=== PATIENT | male | born 1965 | race Caucasian/White ===

== ENCOUNTER 2017-02-19 18:49 | Inpatient (IN) | payer OTHER ==
[~2017-02-19] VITALS: Ht 198.1 cm; Wt 128.3 kg
[2017-02-19 19:28] LABS: HEMATOCRIT 55.2 % (38.0-50.0); HEMOGLOBIN 17.6 G/DL (12.5-16.6); MCH 27.2 PG (29.0-34.0); MCHC 31.9 G/DL (30.0-36.0); MCV 85.2 FL (86-99); PLATELET COUNT 358 K/uL (156-360); RBC DIS.WIDTH-CV 13.8 % (11.8-14.6); RBC DIS.WIDTH-SD 42.3 % (39-53); RED BLOOD COUNT 6.48 M/uL (4.00-5.50); WHITE BLOOD COUNT 17.6 K/uL (4.1-10.2)
[2017-02-19 19:36] LABS: CHLORIDE 100 mEq/L (99-109); SODIUM 129 mEq/L (136-147)
[2017-02-19 19:42] LABS: GFR ESTIMATE (CALCULATED) 37 mL/min/ (58.99-99999)
[2017-02-19 19:43] LABS: UREA NITROGEN (BUN) 27 mg/dL (9-23)
[2017-02-19 20:13] LABS: VENOUS PCO2 29 mm Hg (41-51)
[2017-02-19 20:23] LABS: GLUCOSE 603 mg/dL (70-99); POTASSIUM 6.9 mEq/L (3.7-5.4)
[2017-02-19 21:33] LABS: Estimated Average Glucose 280 mg/dL (70-123); HEMOGLOBIN A1c (GLYCOHEMOGLOB) 11.4 % HGB (Below 5.7)
[2017-02-19 22:58] VITALS: BP 112/70
[2017-02-19 23:00] VITALS: BP 112/70
[2017-02-20] VITALS (22 sets, daily range): BP systolic 92–151; BP diastolic 52–88
[2017-02-20 00:27] LABS: CHLORIDE 104 mEq/L (99-109); SODIUM 131 mEq/L (136-147)
[2017-02-20 00:33] LABS: CREATININE 1.8 mg/dL (0.6-1.3); GFR ESTIMATE (CALCULATED) 42 mL/min/ (58.99-99999); PHOSPHORUS 4.2 mg/dL (2.5-4.9)
[2017-02-20 00:34] LABS: UREA NITROGEN (BUN) 31 mg/dL (9-23)
[2017-02-20 00:43] LABS: GLUCOSE 531 mg/dL (70-99); POTASSIUM 5.2 mEq/L (3.7-5.4)
[2017-02-20 01:19] LABS: APPEARANCE CLEAR ((CLEAR)); BILIRUBIN NEGATIVE; BLOOD SMALL; COLOR YELLOW ((YELLOW)); GLUCOSE (STRIP) >=500; KETONES 80; LEUKOCYTES NEGATIVE; NITRITE NEGATIVE; PROTEIN (STRIP) 30; UROBILINOGEN 0.2 MG/DL (0.2-1.0)
[2017-02-20 01:24] LABS: BACTERIA RARE /HPF; EPITHELIAL CELLS RARE /HPF; MUCUS TRACE /LPF; RED BLOOD CELLS 0-5 /HPF (0-5); UCUL ADDED? NO; WHITE BLOOD CELLS 0-5 /HPF (0-5)
[2017-02-20 04:38] LABS: CHLORIDE 108 mEq/L (99-109); POTASSIUM 4.9 mEq/L (3.7-5.4); SODIUM 133 mEq/L (136-147)
[2017-02-20 04:40] LABS: GLUCOSE 335 mg/dL (70-99)
[2017-02-20 04:44] LABS: CREATININE 1.4 mg/dL (0.6-1.3); GFR ESTIMATE (CALCULATED) 56 mL/min/ (58.99-99999); UREA NITROGEN (BUN) 33 mg/dL (9-23)
[2017-02-20 04:50] LABS: PHOSPHORUS 2.4 mg/dL (2.5-4.9)
[2017-02-20 08:46] LABS: CHLORIDE 108 MEQ/L (99-109); POTASSIUM 4.6 MEQ/L (3.7-5.4); SODIUM 135 MEQ/L (136-147)
[2017-02-20 08:52] LABS: GFR ESTIMATE (CALCULATED) > 59 mL/min/ (58.99-99999); GLUCOSE 225 mg/dL (70-99); PHOSPHORUS 2.3 mg/dL (2.5-4.9); UREA NITROGEN (BUN) 32 mg/dL (9-23)
[2017-02-20 08:55] LABS: CREATININE 0.9 MG/DL (0.6-1.3)
[2017-02-20 12:34] LABS: CHLORIDE 99 MEQ/L (99-109); CREATININE 0.8 MG/DL (0.6-1.3); GFR ESTIMATE (CALCULATED) > 59 mL/min/ (58.99-99999); GLUCOSE 182 mg/dL (70-99); PHOSPHORUS 1.7 mg/dL (2.5-4.9); SODIUM 124 MEQ/L (136-147); UREA NITROGEN (BUN) 30 mg/dL (9-23)
[2017-02-20 12:58] LABS: BASOPHIL (%) 0.2 % (0-1); EOSINOPHIL (%) 0 % (0-5); HEMATOCRIT 41.8 % (38.0-50.0); IMMATURE GRANULOCYTE (%) 0.6 % (0.0-0.7); LYMPHOCYTE (%) 13.2 % (15-42); LYMPHOCYTE COUNT 1.4 K/uL (1.0-2.8); MCHC 33.7 G/DL (30.0-36.0); MONOCYTE (%) 14.6 % (3-12); MONOCYTE COUNT 1.6 K/uL (0-0.8); NEUTROPHIL (%) 71.4 % (45-76); NEUTROPHIL COUNT 7.7 K/uL (1.8-6.4); RBC DIS.WIDTH-CV 13.6 % (11.8-14.6); RBC DIS.WIDTH-SD 39.1 % (39-53); WHITE BLOOD COUNT 10.8 K/uL (4.1-10.2)
[2017-02-20 12:59] LABS: HEMOGLOBIN 14.1 G/DL (12.5-16.6); MCV 79.9 FL (86-99); RED BLOOD COUNT 5.23 M/uL (4.00-5.50)
[2017-02-20 13:15] LABS: ALKALINE PHOSPHATASE 32 IU/L (3-129); ALT (GPT) 15 IU/L (3-49); AST (GOT) 11 IU/L (2-34); MAGNESIUM 1.5 mg/dl (1.3-2.7); TOTAL BILIRUBIN 0.3 MG/DL (0.0-1.0); TOTAL PROTEIN 5.3 G/DL (6.4-8.3)
[2017-02-20 13:22] LABS: PLAT.SUFFICIENCY ADEQUATE; PLATELET COUNT 247 K/uL (156-360)
[2017-02-20 14:15] LABS: HIGH-SENS C-REACTIVE PROTEIN 7.13 MG/DL (0.02-0.20)
[2017-02-20 14:46] LABS: THYROTROPIN (TSH) 0.41 MIU/L (0.4-5.5)
[2017-02-20 16:47] LABS: CHLORIDE 106 MEQ/L (99-109); SODIUM 130 MEQ/L (136-147)
[2017-02-20 16:48] LABS: POTASSIUM 3.6 MEQ/L (3.7-5.4)
[2017-02-20 16:52] LABS: CREATININE 0.7 MG/DL (0.6-1.3); GFR ESTIMATE (CALCULATED) > 59 mL/min/ (58.99-99999); GLUCOSE 181 mg/dL (70-99); PHOSPHORUS 1.3 mg/dL (2.5-4.9); UREA NITROGEN (BUN) 29 mg/dL (9-23)
[2017-02-20] MEDS ORDERED: CLONAZEPAM2 MG PO (16:54)
[2017-02-20] MEDS ORDERED: HUMALOG100 UNIT/1 SC (16:54)
[2017-02-20] MEDS ORDERED: VENLAFAXINE H37.5 M3 PO (16:55)
[2017-02-20] MEDS ORDERED: VIAGRA100 MG PO (16:55)
[2017-02-20] MEDS ORDERED: ATORVASTATIN CA40 MG PO (16:55)
[2017-02-20] MEDS ORDERED: FARXIGA5 MG PO (16:55)
[2017-02-20] MEDS ORDERED: TRULICITY1.5 MG/0.5 SC (16:55)
[2017-02-20] MEDS ORDERED: AMLODIPINE-BEN1 EACH PO (16:55)
[2017-02-20] MEDS ORDERED: VENLAFAXINE HC150 M1 PO (16:55)
[2017-02-20] MEDS ORDERED: PREVACID 24HR15 MG PO (16:56)
[2017-02-20] MEDS ORDERED: VALERIAN ROOT500 MG PO (16:56)
[2017-02-20] MEDS ORDERED: METFORMIN HCL500 M1 PO (16:56)
[2017-02-20] MEDS ORDERED: ST. JOHN'S WOR300 MG PO (16:56)
[2017-02-20 20:42] LABS: CHLORIDE 110 MEQ/L (99-109); POTASSIUM 3.2 MEQ/L (3.7-5.4); SODIUM 133 MEQ/L (136-147)
[2017-02-20 20:48] LABS: CREATININE 0.6 MG/DL (0.6-1.3); GFR ESTIMATE (CALCULATED) > 59 mL/min/ (58.99-99999); GLUCOSE 157 mg/dL (70-99); PHOSPHORUS 1.4 mg/dL (2.5-4.9); UREA NITROGEN (BUN) 23 mg/dL (9-23)
[2017-02-21] VITALS (24 sets, daily range): BP systolic 84–173; BP diastolic 64–98
[2017-02-21 05:53] LABS: HEMATOCRIT 38.9 % (38.0-50.0); HEMOGLOBIN 12.9 G/DL (12.5-16.6); MCH 26.4 PG (29.0-34.0); MCHC 33.2 G/DL (30.0-36.0); MCV 79.6 FL (86-99); PLATELET COUNT 187 K/uL (156-360); RBC DIS.WIDTH-CV 13.8 % (11.8-14.6); RBC DIS.WIDTH-SD 39.9 % (39-53); RED BLOOD COUNT 4.89 M/uL (4.00-5.50); WHITE BLOOD COUNT 10.7 K/uL (4.1-10.2)
[2017-02-21 06:33] LABS: ALBUMIN 2.6 G/DL (3.2-4.8); ALKALINE PHOSPHATASE 25 IU/L (3-129); ALT (GPT) 10 IU/L (3-49); AST (GOT) 9 IU/L (2-34); CHLORIDE 105 MEQ/L (99-109); CREATININE 0.7 MG/DL (0.6-1.3); GFR ESTIMATE (CALCULATED) > 59 mL/min/ (58.99-99999); POTASSIUM 3.8 MEQ/L (3.7-5.4); SODIUM 133 MEQ/L (136-147); TOTAL PROTEIN 4.6 G/DL (6.4-8.3); UREA NITROGEN (BUN) 16 mg/dL (9-23)
[2017-02-21 06:38] LABS: GLUCOSE 245 mg/dL (70-99); TOTAL BILIRUBIN 0.5 MG/DL (0.0-1.0)
[2017-02-21 07:35] LABS: MAGNESIUM 1.4 mg/dl (1.3-2.7); PHOSPHORUS 2.1 mg/dL (2.5-4.9)
[2017-02-21 11:17] LABS: METHEMOGLOBIN 1.5 % (0-1.5); PCO2 < 19 mm Hg (35-45); PO2 76 mm Hg (80-100)
[2017-02-21 11:18] LABS: SITE LR
[2017-02-21 11:19] LABS: COMMENTS - BLOOD GASES A+C+; TOTAL RESP RATE 36 resp/min; pH 7.22 (7.35-7.45)
[2017-02-22] VITALS (22 sets, daily range): BP systolic 103–154; BP diastolic 60–97
[2017-02-22 06:12] LABS: ALBUMIN 2.4 G/DL (3.2-4.8); ALKALINE PHOSPHATASE 23 IU/L (3-129); ALT (GPT) 8 IU/L (3-49); AMYLASE 12 IU/L (1-118); AST (GOT) < 7 IU/L (2-34); CHLORIDE 108 MEQ/L (99-109); CREATININE 0.9 MG/DL (0.6-1.3); GFR ESTIMATE (CALCULATED) > 59 mL/min/ (58.99-99999); GLUCOSE 254 mg/dL (70-99); POTASSIUM 3.2 MEQ/L (3.7-5.4); SODIUM 137 MEQ/L (136-147); TOTAL BILIRUBIN 0.5 MG/DL (0.0-1.0); TOTAL PROTEIN 4.6 G/DL (6.4-8.3); UREA NITROGEN (BUN) 14 mg/dL (9-23)
[2017-02-22 10:05] LABS: BASOPHIL (%) 0.2 % (0-1); EOSINOPHIL (%) 0 % (0-5); HEMATOCRIT 34.6 % (38.0-50.0); IMMATURE GRANULOCYTE (%) 1.7 % (0.0-0.7); LYMPHOCYTE (%) 12.8 % (15-42); LYMPHOCYTE COUNT 1.4 K/uL (1.0-2.8); MCH 27.1 PG (29.0-34.0); MCHC 34.7 G/DL (30.0-36.0); MCV 78.3 FL (86-99); MONOCYTE (%) 8.4 % (3-12); MONOCYTE COUNT 0.9 K/uL (0-0.8); NEUTROPHIL (%) 76.9 % (45-76); NEUTROPHIL COUNT 8.4 K/uL (1.8-6.4); PLATELET COUNT 191 K/uL (156-360); RBC DIS.WIDTH-CV 14.3 % (11.8-14.6); RBC DIS.WIDTH-SD 40.1 % (39-53); RED BLOOD COUNT 4.42 M/uL (4.00-5.50)
[2017-02-22 10:55] LABS: HIGH-SENS C-REACTIVE PROTEIN > 8.00 MG/DL (0.02-0.20)
[2017-02-22 17:05] LABS: ALBUMIN 2.6 G/DL (3.2-4.8); ALKALINE PHOSPHATASE 25 IU/L (3-129); ALT (GPT) 9 IU/L (3-49); AST (GOT) 8 IU/L (2-34); CHLORIDE 109 MEQ/L (99-109); CREATININE 0.8 MG/DL (0.6-1.3); GFR ESTIMATE (CALCULATED) > 59 mL/min/ (58.99-99999); GLUCOSE 244 mg/dL (70-99); MAGNESIUM 2.1 mg/dl (1.3-2.7); PHOSPHORUS 1.2 mg/dL (2.5-4.9); POTASSIUM 3.2 MEQ/L (3.7-5.4); SODIUM 140 MEQ/L (136-147); TOTAL BILIRUBIN 0.6 MG/DL (0.0-1.0); TOTAL PROTEIN 4.9 G/DL (6.4-8.3); UREA NITROGEN (BUN) 12 mg/dL (9-23)
[2017-02-22 17:06] LABS: TROP-I INTERPRETATION NEGATIVE; TROPONIN-I < 0.01 ng/mL (0.0-0.30)
[2017-02-22 23:30] LABS: ALBUMIN 2.4 G/DL (3.2-4.8); ALKALINE PHOSPHATASE 24 IU/L (3-129); ALT (GPT) 8 IU/L (3-49); AST (GOT) 7 IU/L (2-34); CHLORIDE 116 MEQ/L (99-109); CREATININE 0.7 MG/DL (0.6-1.3); GFR ESTIMATE (CALCULATED) > 59 mL/min/ (58.99-99999); GLUCOSE 200 mg/dL (70-99); POTASSIUM 2.9 MEQ/L (3.7-5.4); SODIUM 142 MEQ/L (136-147); TOTAL PROTEIN 4.7 G/DL (6.4-8.3); UREA NITROGEN (BUN) 12 mg/dL (9-23)
[2017-02-22 23:32] LABS: TOTAL BILIRUBIN 0.4 MG/DL (0.0-1.0)
[2017-02-23] VITALS (24 sets, daily range): BP systolic 114–173; BP diastolic 71–105
[2017-02-23 06:21] LABS: BASOPHIL (%) 0.2 % (0-1); EOSINOPHIL (%) 0 % (0-5); HEMOGLOBIN 11.6 G/DL (12.5-16.6); IMMATURE GRANULOCYTE (%) 0.7 % (0.0-0.7); LYMPHOCYTE (%) 8.1 % (15-42); LYMPHOCYTE COUNT 0.9 K/uL (1.0-2.8); MCH 26.5 PG (29.0-34.0); MCHC 34.1 G/DL (30.0-36.0); MCV 77.8 FL (86-99); MONOCYTE (%) 5.3 % (3-12); MONOCYTE COUNT 0.6 K/uL (0-0.8); NEUTROPHIL (%) 85.7 % (45-76); NEUTROPHIL COUNT 9.9 K/uL (1.8-6.4); PLATELET COUNT 218 K/uL (156-360); RBC DIS.WIDTH-CV 14.4 % (11.8-14.6); RBC DIS.WIDTH-SD 40.3 % (39-53); RED BLOOD COUNT 4.37 M/uL (4.00-5.50); WHITE BLOOD COUNT 11.5 K/uL (4.1-10.2)
[2017-02-23 06:53] LABS: ALBUMIN 2.3 G/DL (3.2-4.8); ALKALINE PHOSPHATASE 29 IU/L (3-129); ALT (GPT) 7 IU/L (3-49); AST (GOT) 8 IU/L (2-34); CHLORIDE 114 MEQ/L (99-109); CREATININE 0.7 MG/DL (0.6-1.3); GFR ESTIMATE (CALCULATED) > 59 mL/min/ (58.99-99999); GLUCOSE 147 mg/dL (70-99); MAGNESIUM 2.1 mg/dl (1.3-2.7); PHOSPHORUS 1.2 mg/dL (2.5-4.9); POTASSIUM 3.2 MEQ/L (3.7-5.4); SODIUM 143 MEQ/L (136-147); TOTAL PROTEIN 4.6 G/DL (6.4-8.3); UREA NITROGEN (BUN) 14 mg/dL (9-23)
[2017-02-23 07:04] LABS: TOTAL BILIRUBIN 0.3 MG/DL (0.0-1.0)
[2017-02-23 07:10] LABS: ERTH.SED.RATE 30 MM/HR (0-20)
[2017-02-23 10:49] LABS: ALBUMIN 2.4 G/DL (3.2-4.8); ALKALINE PHOSPHATASE 26 IU/L (3-129); ALT (GPT) 6 IU/L (3-49); AST (GOT) 7 IU/L (2-34); CHLORIDE 115 MEQ/L (99-109); CREATININE 0.6 MG/DL (0.6-1.3); GFR ESTIMATE (CALCULATED) > 59 mL/min/ (58.99-99999); GLUCOSE 160 mg/dL (70-99); MAGNESIUM 2.1 mg/dl (1.3-2.7); PHOSPHORUS 1.3 mg/dL (2.5-4.9); SODIUM 143 MEQ/L (136-147); TOTAL BILIRUBIN 0.3 MG/DL (0.0-1.0); TOTAL PROTEIN 4.6 G/DL (6.4-8.3); UREA NITROGEN (BUN) 15 mg/dL (9-23)
[2017-02-23 21:00] LABS: ALBUMIN 2.4 G/DL (3.2-4.8); CHLORIDE 117 MEQ/L (99-109); MAGNESIUM 2.1 mg/dl (1.3-2.7); POTASSIUM 2.9 MEQ/L (3.7-5.4); SODIUM 145 MEQ/L (136-147); TOTAL BILIRUBIN 0.3 MG/DL (0.0-1.0)
[2017-02-23 21:16] LABS: ALKALINE PHOSPHATASE 28 IU/L (3-129); ALT (GPT) 8 IU/L (3-49); AST (GOT) 8 IU/L (2-34); CREATININE 0.6 MG/DL (0.6-1.3); GFR ESTIMATE (CALCULATED) > 59 mL/min/ (58.99-99999); GLUCOSE 194 mg/dL (70-99); PHOSPHORUS 1.4 mg/dL (2.5-4.9); UREA NITROGEN (BUN) 18 mg/dL (9-23)
[2017-02-24] VITALS (23 sets, daily range): BP systolic 119–168; BP diastolic 66–110
[2017-02-24 04:49] LABS: BASOPHIL (%) 0.2 % (0-1); EOSINOPHIL (%) 0 % (0-5); HEMATOCRIT 30.8 % (38.0-50.0); HEMOGLOBIN 10.7 G/DL (12.5-16.6); IMMATURE GRANULOCYTE (%) 1.5 % (0.0-0.7); LYMPHOCYTE (%) 9.6 % (15-42); LYMPHOCYTE COUNT 1.2 K/uL (1.0-2.8); MCHC 34.7 G/DL (30.0-36.0); MCV 77.6 FL (86-99); MONOCYTE (%) 7.1 % (3-12); MONOCYTE COUNT 0.9 K/uL (0-0.8); NEUTROPHIL (%) 81.6 % (45-76); PLATELET COUNT 256 K/uL (156-360); RBC DIS.WIDTH-CV 14.6 % (11.8-14.6); RBC DIS.WIDTH-SD 41.1 % (39-53); RED BLOOD COUNT 3.97 M/uL (4.00-5.50); WHITE BLOOD COUNT 12.2 K/uL (4.1-10.2)
[2017-02-24 05:10] LABS: ALBUMIN 2.3 g/dL (3.2-4.8); POTASSIUM 2.8 mEq/L (3.7-5.4); SODIUM 148 mEq/L (136-147)
[2017-02-24 05:12] LABS: GLUCOSE 141 mg/dL (70-99)
[2017-02-24 05:13] LABS: TOTAL PROTEIN 4.3 g/dL (6.4-8.3)
[2017-02-24 05:14] LABS: TOTAL BILIRUBIN 0.4 mg/dL (0.0-1.0)
[2017-02-24 05:15] LABS: CHLORIDE 120 mEq/L (99-109)
[2017-02-24 05:16] LABS: ALKALINE PHOSPHATASE 32 IU/L (3-129); CREATININE 0.7 mg/dL (0.6-1.3); GFR ESTIMATE (CALCULATED) > 59 mL/min/ (58.99-99999)
[2017-02-24 05:17] LABS: PHOSPHORUS 1.5 mg/dL (2.5-4.9); UREA NITROGEN (BUN) 18 mg/dL (9-23)
[2017-02-24 05:18] LABS: AST (GOT) 10 IU/L (2-34)
[2017-02-24 05:19] LABS: ALT (GPT) 10 IU/L (3-49)
[2017-02-24 13:41] LABS: CHLORIDE 119 MEQ/L (99-109); POTASSIUM 2.9 MEQ/L (3.7-5.4); SODIUM 149 MEQ/L (136-147)
[2017-02-24 13:49] LABS: CREATININE 0.5 MG/DL (0.6-1.3); GFR ESTIMATE (CALCULATED) > 59 mL/min/ (58.99-99999); GLUCOSE 201 mg/dL (70-99); PHOSPHORUS 2.4 mg/dL (2.5-4.9); UREA NITROGEN (BUN) 21 mg/dL (9-23)
[2017-02-25] VITALS (23 sets, daily range): BP systolic 126–171; BP diastolic 72–96
[2017-02-25 04:54] LABS: HEMATOCRIT 28.8 % (38.0-50.0); HEMOGLOBIN 9.9 G/DL (12.5-16.6); MCH 26.8 PG (29.0-34.0); MCHC 34.4 G/DL (30.0-36.0); NRBC (%) 0.6 /100 WBC (0-0); PLATELET COUNT 315 K/uL (156-360); RBC DIS.WIDTH-CV 14.9 % (11.8-14.6); RBC DIS.WIDTH-SD 42.4 % (39-53); RED BLOOD COUNT 3.69 M/uL (4.00-5.50)
[2017-02-25 05:04] LABS: CHLORIDE 118 mEq/L (99-109)
[2017-02-25 05:05] LABS: ALBUMIN 2.3 g/dL (3.2-4.8); MAGNESIUM 2.2 mg/dL (1.3-2.7); POTASSIUM 2.8 mEq/L (3.7-5.4); SODIUM 150 mEq/L (136-147)
[2017-02-25 05:07] LABS: GLUCOSE 172 mg/dL (70-99); TOTAL PROTEIN 4.6 g/dL (6.4-8.3)
[2017-02-25 05:09] LABS: TOTAL BILIRUBIN 0.4 mg/dL (0.0-1.0)
[2017-02-25 05:10] LABS: PHOSPHORUS 1.9 mg/dL (2.5-4.9)
[2017-02-25 05:11] LABS: ALKALINE PHOSPHATASE 35 IU/L (3-129); CREATININE 0.7 mg/dL (0.6-1.3); GFR ESTIMATE (CALCULATED) > 59 mL/min/ (58.99-99999)
[2017-02-25 05:12] LABS: UREA NITROGEN (BUN) 21 mg/dL (9-23)
[2017-02-25 05:13] LABS: AST (GOT) 20 IU/L (2-34)
[2017-02-25 05:14] LABS: ALT (GPT) 10 IU/L (3-49)
[2017-02-25 05:35] LABS: ABS NEUTROPHIL COUNT 8.3; ANISOCYTOSIS 1+; BAND NEUTROPHILS 1.8 % (0-8.0); EOSINOPHIL ABS CT 0; LYMPHOCYTES 3.5 % (15.0-45.0); MICROCYTOSIS 1+; MONOCYTES 2.6 % (0-9.0); MYELOCYTES 1.8 %; NUCLEATED RBC'S 0.9; PLAT.SUFFICIENCY ADEQUATE; POIKILOCYTOSIS 1+; SEG.NEUTROPHILS 90.3 % (46.0-76.0)
[2017-02-25 11:30] LABS: HEPATITIS B SURFACE ANTIGEN Nonreactive
[2017-02-26] VITALS (24 sets, daily range): BP systolic 115–163; BP diastolic 64–103
[2017-02-26 07:09] LABS: HEMATOCRIT 29.8 % (38.0-50.0); HEMOGLOBIN 10.1 G/DL (12.5-16.6); MCH 27.4 PG (29.0-34.0); MCHC 33.9 G/DL (30.0-36.0); NRBC (%) 0.7 /100 WBC (0-0); PLATELET COUNT 315 K/uL (156-360); RBC DIS.WIDTH-CV 15.5 % (11.8-14.6); RBC DIS.WIDTH-SD 45.1 % (39-53); RED BLOOD COUNT 3.68 M/uL (4.00-5.50); WHITE BLOOD COUNT 9.7 K/uL (4.1-10.2)
[2017-02-26 07:33] LABS: ABS NEUTROPHIL COUNT 8.5; BAND NEUTROPHILS 1.7 % (0-8.0); EOSINOPHIL ABS CT 0; MONOCYTES 4.3 % (0-9.0); MYELOCYTES 0.9 %; NUCLEATED RBC'S 0.9; SEG.NEUTROPHILS 86.1 % (46.0-76.0); SMUDGE CELLS 7.8
[2017-02-26 07:39] LABS: ALBUMIN 2.3 G/DL (3.2-4.8); ALKALINE PHOSPHATASE 29 IU/L (3-129); ALT (GPT) 8 IU/L (3-49); AST (GOT) 7 IU/L (2-34); CHLORIDE 111 MEQ/L (99-109); CREATININE 0.7 MG/DL (0.6-1.3); GFR ESTIMATE (CALCULATED) > 59 mL/min/ (58.99-99999); MAGNESIUM 2.4 mg/dl (1.3-2.7); POTASSIUM 3.3 MEQ/L (3.7-5.4); SODIUM 144 MEQ/L (136-147); TOTAL PROTEIN 4.3 G/DL (6.4-8.3); UREA NITROGEN (BUN) 23 mg/dL (9-23)
[2017-02-26 07:41] LABS: GLUCOSE 328 mg/dL (70-99); TOTAL BILIRUBIN 0.4 MG/DL (0.0-1.0)
[2017-02-27] VITALS (10 sets, daily range): BP systolic 119–163; BP diastolic 60–97
[2017-02-27 01:14] LABS: QGTB-NIL 0.02 IU/mL (()); QUANTIFERON TB GOLD INDETERMINATE (Negative); TB AG-NIL <0.00 IU/mL (())
[2017-02-27 06:50] LABS: HEMATOCRIT 29.6 % (38.0-50.0); HEMOGLOBIN 9.8 G/DL (12.5-16.6); MCH 26.8 PG (29.0-34.0); MCHC 33.1 G/DL (30.0-36.0); MCV 81.1 FL (86-99); NRBC (%) 0.4 /100 WBC (0-0); PLATELET COUNT 301 K/uL (156-360); RBC DIS.WIDTH-CV 15.3 % (11.8-14.6); RBC DIS.WIDTH-SD 44.1 % (39-53); RED BLOOD COUNT 3.65 M/uL (4.00-5.50); WHITE BLOOD COUNT 9.8 K/uL (4.1-10.2)
[2017-02-27 07:24] LABS: ALBUMIN 2.3 G/DL (3.2-4.8); ALKALINE PHOSPHATASE 27 IU/L (3-129); ALT (GPT) 6 IU/L (3-49); AST (GOT) < 7 IU/L (2-34); CHLORIDE 111 MEQ/L (99-109); CREATININE 0.7 MG/DL (0.6-1.3); GFR ESTIMATE (CALCULATED) > 59 mL/min/ (58.99-99999); GLUCOSE 252 mg/dL (70-99); MAGNESIUM 2.4 mg/dl (1.3-2.7); PHOSPHORUS 3.2 mg/dL (2.5-4.9); POTASSIUM 3.6 MEQ/L (3.7-5.4); SODIUM 145 MEQ/L (136-147); TOTAL BILIRUBIN 0.4 MG/DL (0.0-1.0); TOTAL PROTEIN 4.4 G/DL (6.4-8.3); UREA NITROGEN (BUN) 17 mg/dL (9-23)
[2017-02-27 07:35] LABS: BASOPHIL (%) 0.3 % (0-1); EOSINOPHIL (%) 0 % (0-5); IMMATURE GRANULOCYTE (%) 2.4 % (0.0-0.7); LYMPHOCYTE (%) 10.6 % (15-42); MONOCYTE (%) 6.1 % (3-12); MONOCYTE COUNT 0.6 K/uL (0-0.8); NEUTROPHIL (%) 80.6 % (45-76); NEUTROPHIL COUNT 7.9 K/uL (1.8-6.4)
[2017-02-28 06:40] LABS: CHLORIDE 111 MEQ/L (99-109); CREATININE 0.6 MG/DL (0.6-1.3); GFR ESTIMATE (CALCULATED) > 59 mL/min/ (58.99-99999); GLUCOSE 56 mg/dL (70-99); POTASSIUM 3.2 MEQ/L (3.7-5.4); SODIUM 144 MEQ/L (136-147); UREA NITROGEN (BUN) 13 mg/dL (9-23)
[2017-02-28 07:20] VITALS: BP 163/80
[2017-02-28] MEDS ORDERED: AUGMENTIN875 MG PO (09:11)
[2017-02-28] MEDS ORDERED: XULTOPHY 100 UNI3 ML SC (09:12)
[2017-02-28] MEDS ORDERED: PREDNISONE10 MG PO (09:15)
== END 2017-02-28 13:00 | disposition home or self-care (01) | DRG 871 ==
LOC: EME 18:49 → EDOF 21:02 → 4WEST 21:02 → ENRESERV 21:04 → 4WEST 22:44 → ENRESERV 02-27 07:42 → 5EAST 02-27 10:32 → ENPENDDIS 02-28 → 5EAST 02-28 13:00
PROVIDERS: Emergency Medicine; Family Medicine; Internal Medicine; Internal Medicine Critical Care Medicine; Specialist
PROC: 02HV33Z Insertion of Infusion Device into Superior Vena Cava, Percutaneous Approach (ICD-10-PCS; principal; 2017-02-22)
DX: A41.9 Sepsis, unspecified organism (principal); R65.20 Severe sepsis without septic shock; A09 Infectious gastroenteritis and colitis, unspecified; E11.10 Type 2 diabetes mellitus with ketoacidosis without coma; G93.40 Encephalopathy, unspecified; N17.9 Acute kidney failure, unspecified; K50.90 Crohn's disease, unspecified, without complications; K56.600 Partial intestinal obstruction, unspecified as to cause; I48.4 Atypical atrial flutter; E86.0 Dehydration; E87.2 Acidosis; E87.0 Hyperosmolality and hypernatremia; E87.5 Hyperkalemia; E87.6 Hypokalemia; I95.9 Hypotension, unspecified; I10 Essential (primary) hypertension; D64.9 Anemia, unspecified; F41.1 Generalized anxiety disorder; F32.9 Major depressive disorder, single episode, unspecified; Z91.19 Patient's noncompliance with other medical treatment and regimen; K59.09 Other constipation; G47.00 Insomnia, unspecified; K21.9 Gastro-esophageal reflux disease without esophagitis; K80.20 Calculus of gallbladder without cholecystitis without obstruction; R31.29 Other microscopic hematuria; R00.0 Tachycardia, unspecified; R06.82 Tachypnea, not elsewhere classified; R30.0 Dysuria; E66.9 Obesity, unspecified; Z68.29 Body mass index [BMI] 29.0-29.9, adult; Z79.84 Long term (current) use of oral hypoglycemic drugs; Z87.891 Personal history of nicotine dependence
CPT/HCPCS: 36600; 70450; 71010; 71020; 71275; 74000; 74020; 74176; 74177; 80048; 80048 91; 80053; 81003; 82010; 82150; 82436; 82533 91; 82803; 82948; 83036; 83605; 83605 90; 83735; 83930; 83935; 84100; 84133; 84145 90; 84300; 84443; 84484; 85025; 85027; 85651; 85730; 86021 90; 86141; 86480 90; 86671 90; 87040; 87340; 87502; 87641; 90686; 93005; 93306; 94799; 99281; 99285; C1751; J0610; J0692; J1200; J1450; J1630; J1650; J1815; J1940; J2060; J2543; J2920; J2930; J3370; J3475; J3480; J7030; J7040; J7050; J7070; J7120; J7512; S0030

== ENCOUNTER 2017-05-15 16:44 | Emergency (ER) | payer OTHER ==
[~2017-05-15] VITALS: Ht 198.1 cm; Wt 111.9 kg
[~2017-05-15 16:44] MED LIST: AMLODIPINE-BEN1 EACH PO; ATORVASTATIN CA40 MG PO; AUGMENTIN875 MG PO; CLONAZEPAM2 MG PO; FARXIGA5 MG PO; HUMALOG100 UNIT/1 SC; METFORMIN HCL500 M1 PO; PREDNISONE10 MG PO; PREVACID 24HR15 MG PO; ST. JOHN'S WOR300 MG PO; TRULICITY1.5 MG/0.5 SC; VALERIAN ROOT500 MG PO; VENLAFAXINE H37.5 M3 PO; VENLAFAXINE HC150 M1 PO; VIAGRA100 MG PO; XULTOPHY 100 UNI3 ML SC
[2017-05-15 18:08] LABS: BASOPHIL (%) 0.7 % (0-1); BASOPHIL COUNT 0.1 K/uL (0-0.1); EOSINOPHIL (%) 0.6 % (0-5); EOSINOPHIL COUNT 0.1 K/uL (0-0.3); HEMATOCRIT 39.5 % (38.0-50.0); HEMOGLOBIN 12.5 G/DL (12.5-16.6); IMMATURE GRANULOCYTE (%) 0.2 % (0.0-0.7); LYMPHOCYTE COUNT 2.2 K/uL (1.0-2.8); MCH 25.2 PG (29.0-34.0); MCHC 31.6 G/DL (30.0-36.0); MCV 79.6 FL (86-99); MONOCYTE (%) 8.3 % (3-12); MONOCYTE COUNT 0.9 K/uL (0-0.8); NEUTROPHIL (%) 70.2 % (45-76); NEUTROPHIL COUNT 7.6 K/uL (1.8-6.4); PLATELET COUNT 316 K/uL (156-360); RBC DIS.WIDTH-CV 17.3 % (11.8-14.6); RBC DIS.WIDTH-SD 46.5 % (39-53); RED BLOOD COUNT 4.96 M/uL (4.00-5.50); WHITE BLOOD COUNT 10.8 K/uL (4.1-10.2)
[2017-05-15 18:29] LABS: CHLORIDE 109 mEq/L (99-109); POTASSIUM 4.1 mEq/L (3.7-5.4); SODIUM 139 mEq/L (136-147)
[2017-05-15 18:30] LABS: GLUCOSE 111 mg/dL (70-99)
[2017-05-15 18:34] LABS: CREATININE 0.7 mg/dL (0.6-1.3); GFR ESTIMATE (CALCULATED) > 59 mL/min/ (58.99-99999)
[2017-05-15 18:35] LABS: UREA NITROGEN (BUN) 7 mg/dL (9-23)
[2017-05-15 21:10] VITALS: BP 127/83
== END 2017-05-15 21:11 | disposition home or self-care (01) ==
LOC: EME 16:44
PROVIDERS: Emergency Medicine
DX: E86.0 Dehydration (principal); I10 Essential (primary) hypertension; K21.9 Gastro-esophageal reflux disease without esophagitis; F41.9 Anxiety disorder, unspecified; Z87.891 Personal history of nicotine dependence
CPT/HCPCS: 80048; 81003; 85025; 99281; 99284; J7030